=== PATIENT | female | born 1985 | race Caucasian/White ===

== ENCOUNTER → 2018-01-19 14:16 | Outpatient (REF) | payer OTHER, MEDICAID, SELFPAY | LOC: LAB 14:16 | PROVIDERS: PCP Family Medicine; Visit Provider Family Medicine | DX: Z34.02 Encounter for supervision of normal first pregnancy, second trimester (principal); Z53.9 Procedure and treatment not carried out, unspecified reason ==

== ENCOUNTER → 2018-02-13 11:37 | Outpatient (CLI) | payer OTHER, MEDICAID, SELFPAY ==
[2018-02-13 13:31] LABS: Hematocrit 32.2 % (36-46)
[2018-02-13 13:36] LABS: GTT (PREG) 1 Hour PP 50gm Dose 119 mg/dL (76-139)
== END ==
PROVIDERS: PCP Family Medicine; Visit Provider Family Medicine
DX: Z36.9 Encounter for antenatal screening, unspecified (principal); Z3A.26 26 weeks gestation of pregnancy
CPT/HCPCS: 36415; 82950; 85014; 85018

== ENCOUNTER → 2018-04-06 13:18 | Outpatient (CLI) | payer OTHER, MEDICAID, SELFPAY ==
[2018-04-06 14:05] LABS: Appearance Urine UA CLEAR; Bilirubin Urine UA NEGATIVE (NEGATIVE); Color Urine UA YELLOW; Glucose Urine UA NEGATIVE (Normal); Ketones Urine UA NEGATIVE (NEGATIVE); Leukocyte Esterase Urine UA TRACE (NEGATIVE); Nitrite Urine UA Negative (Negative); Occult Blood Urine UA NEGATIVE (Negative); Protein Urine UA NEGATIVE (Negative); Specific Gravity Urine UA <=1.005 (1.000-1.035); Urobilinogen Urine UA 0.2 E.U./dL (0.2); pH Urine UA 6.5 (4.5-8.0)
[2018-04-06 14:14] LABS: RBC Urine 0-1/HPF (0-5/HPF); Squamous Epithelial Cell Urine 1-5 /HPF; WBC Urine 1-5/HPF (0-5/HPF)
[2018-04-06 14:15] LABS: Bacteria Urine Occasional (0-1); Culture Indicated Urine Specimen Cultured
== END ==
PROVIDERS: PCP Family Medicine; Visit Provider Family Medicine
DX: O26.899 Other specified pregnancy related conditions, unspecified trimester (principal); R30.0 Dysuria
CPT/HCPCS: 81001; 87086

== ENCOUNTER → 2018-04-17 14:10 | Outpatient (CLI) | payer OTHER, MEDICAID, SELFPAY ==
[2018-04-18 11:56] LABS: Strep Grp B PCR NEG for Grp B Strep
== END ==
PROVIDERS: PCP Family Medicine; Visit Provider Family Medicine
DX: Z3A.36 36 weeks gestation of pregnancy (principal)
CPT/HCPCS: 87653

== ENCOUNTER 2018-05-23 12:05 | Observation (INO) | payer OTHER, MEDICAID, SELFPAY ==
--- NOTE | 2018-05-23 12:35 | PM.OBTRLD ---
Visit Information Visit Information Date of evaluation: 05/23/18 Primary OB Provider: Allison Saab Reason for Evaluation: Yes non-stress test Comments/Additional reasons for admission: NST due to post-dates [facility] Social History Smoking Status: Never smoker Evaluation Evaluation Baseline heart rate: 140 Variability: Moderate (11-25) monitor accelerations: Present monitor decelerations: Absent Category of Tracing: I Diagnosis, Plan/Disposition Final Diagnosis (1) Supervision of normal first in third trimester: Current Visit: No Status: Acute (2) Post-dates : Current Visit: No Status: Acute Plan/Disposition Plan: Repeat NST 05/26/18 OB Disposition: home
== END 2018-05-23 12:44 | disposition home or self-care (01) ==
PROVIDERS: Admitting Provider Family Medicine; PCP Family Medicine; Visit Provider Family Medicine
DX: O48.0 Post-term pregnancy (principal)
CPT/HCPCS: 59025; G0378; G0379

== ENCOUNTER 2018-05-24 04:18 | Inpatient (IN) | payer OTHER, MEDICAID, SELFPAY ==
[2018-05-24 05:04] LABS: Add Manual Diff / Slide Review NO; Basophils Percent Auto 0.4 % (0-2); Hemoglobin 14.1 g/dL (12.0-16.0); Lymphocytes Percent Auto 5.2 % (25-40); Mean Corpuscular HGB Conc 35.2 % (30-36); Mean Corpuscular Hemoglobin 31.3 PG (26-34); Mean Corpuscular Volume 88.9 fL (80-100); Monocytes Percent Auto 3.3 % (3-14); Neutrophils Absolute Auto 19700 /uL (3000-5900); Neutrophils Percent Auto 91.1 % (50-75); Platelet Count 277 X10^3/uL (150-400); Red Cell Distribution Width 13.7 % (11.6-14.8); White Blood Cell Count 21.6 X10^3/uL (4.5-11.0)
[2018-05-24] MEDS: OXYTOCIN 10 UNIT/ML VIAL IM (05:45)
[2018-05-24] MEDS: miSOPROStol 200 MCG TABLET 1000 MCG VAG (07:15)
[2018-05-24] MEDS: IBUPROFEN 600 MG TABLET PO ×3 (08:24→21:04)
[2018-05-24 08:57] VITALS: BP 141/80
[2018-05-24] MEDS: DERMOPLAST SPRAY 20% 60 ML 1 SPRAY TOP (12:20)
--- NOTE | 2018-05-24 12:58 | PM.OBHP.1 ---
OB HPI Date/Time Date of admission: 05/24/18 Date Patient Seen: 05/24/18 Time Patient Seen: 04:30 History of Present Condition Chief complaint: labor & delivery : 1 Para: 0 Estimated Date of Delivery: 05/15/18 Estimated Gestational Age (weeks): 41w2d Narrative: Bonnie Dotson is a 32 year old at 41w2 who presented in active labor. The pt reports having contractions starting around 6pm last night, increasing in intensity and frequency since that time. She had LOF with clear fluid. She denies significant vaginal bleeding. History of Present care: good care Dating criteria: LMP confirmed by 1st trimester US Ultrasounds: normal mid trimester US Obstetrical complications: none Medical complications: none Preadmission Labs Blood type: O (+) positive -: Antibody screen: negative, HBsAG: negative, HIV: negative and RPR/VDLR: negative -: Rubella: immune and Varicella: immune HCT: 32.2 1 hr GTT: 119 Evaluation Evaluation Baseline heart rate: 120 Variability: Moderate (11-25) monitor accelerations: Present monitor decelerations: Absent Contraction Frequency (minutes): 2 Uterine Contraction Intensity: Strong/Firm Category of Tracing: I Cervical dilation (cm): 10 Cervical effacement (%): 100 station: +2 Laboratory results: Laboratory Tests 05/24/18 05/24/18 04:52 04:52 WBC 21.6 H RBC 4.50 Hgb 14.1 Hct 40.0 MCV 88.9 MCH 31.3 MCHC 35.2 RDW 13.7 Plt Count 277 Neut % (Auto) 91.1 H Lymph % (Auto) 5.2 L [place] % (Auto) 3.3 Eos % (Auto) 0.0 L Baso % (Auto) 0.4 Neut # (Auto) 27356 H Blood Type O Positive Antibody Screen Negative PFSH Medical History Seasonal allergies (Chronic) Surgical History H/O nasal septoplasty (Resolved) Family History Father Diabetes mellitus Hypertension Social History Smoking Status: Never smoker Meds Home Medications Medication Instructions Recorded Confirmed Type 1 tab PO DAILY 02/13/18 05/24/18 History vitamin,calcium,votxxlku-tdxs-oliqw acid tablet nitrofurantoin macrocrystal 100 mg 100 mg PO BID #10 cap 04/06/18 05/24/18 Rx capsule Allergies Allergy/AdvReac Type Severity Reaction Status Date / Time cefaclor [From Ceclor] Allergy Verified 02/13/18 10:53 Exam Vital Signs (past 8 hours): - 05/24/18 08:57 Blood Pressure 141/80 H Narrative Exam Narrative: Gen: NAD, laying in bed, appears very uncomfortable with contractions CV: RRR, no murmurs REsp: clear to auscultation bilaterally Abd: gravid, appropriately tender Ext: trace edema Objective Labs Result Diagrams: 05/24/18 04:52 Labs: Laboratory Results - last 24 hr 05/24/18 05/24/18 04:52 04:52 WBC 21.6 H RBC 4.50 Hgb 14.1 Hct 40.0 MCV 88.9 MCH 31.3 MCHC 35.2 RDW 13.7 Plt Count 277 Neut % (Auto) 91.1 H Lymph % (Auto) 5.2 L [place] % (Auto) 3.3 Eos % (Auto) 0.0 L Baso % (Auto) 0.4 Neut # (Auto) 93115 H Blood Type O Positive Antibody Screen Negative Assessment and Plan (1) Post-dates : Current visit: No Status: Acute (2) 41 weeks gestation of : Current visit: Yes Status: Acute 32 yo at 41w2d who presented in active labor. Clear fluid. GBS negative, Rh positive. - Expectant management, anticipate - GBS negative, no prophylaxis indicated - Natural methods for pain control - FHT reassuring
--- NOTE | 2018-05-24 13:01 | P.HPOB_ITS ---
OB HPI Date/Time Date of admission: 05/24/18 Date Patient Seen: 05/24/18 Time Patient Seen: 04:30 History of Present Condition Chief complaint: labor & delivery : 1 Para: 0 Estimated Date of Delivery: 05/15/18 Estimated Gestational Age (weeks): 41w2d Narrative: Bonnie Dotson is a 32 year old at 41w2 who presented in active labor. The pt reports having contractions starting around 6pm last night , increasing in intensity and frequency since that time. She had LOF with clear fluid. She denies significant vaginal bleeding. History of Present care: good care Dating criteria: LMP confirmed by 1st trimester US Ultrasounds: normal mid trimester US Obstetrical complications: none Medical complications: none Preadmission Labs Blood type: O (+) positive -: Antibody screen: negative, HBsAG: negative, HIV: negative and RPR/VDLR: negative -: Rubella: immune and Varicella: immune HCT: 32.2 1 hr GTT: 119 Evaluation Evaluation Baseline heart rate: 120 Variability: Moderate (11-25) monitor accelerations: Present monitor decelerations: Absent Contraction Frequency (minutes): 2 Uterine Contraction Intensity: Strong/Firm Category of Tracing: I Cervical dilation (cm): 10 Cervical effacement (%): 100 station: +2 Laboratory results: Laboratory Tests 05/24/18 05/24/18 04:52 04:52 WBC 21.6 H RBC 4.50 Hgb 14.1 Hct 40.0 MCV 88.9 MCH 31.3 MCHC 35.2 RDW 13.7 Plt Count 277 Neut % (Auto) 91.1 H Lymph % (Auto) 5.2 L [place] % (Auto) 3.3 Eos % (Auto) 0.0 L Baso % (Auto) 0.4 Neut # (Auto) 01356 H Blood Type O Positive Antibody Screen Negative PFSH Medical History Seasonal allergies (Chronic) Surgical History H/O nasal septoplasty (Resolved) Family History Father Diabetes mellitus Hypertension Social History Smoking Status: Never smoker Meds Home Medications Medication Instructions Recorded Confirmed Type 1 tab PO DAILY 02/13/18 05/24/18 History vitamin,calcium,iysaphjb-sbrf-unvbx acid tablet nitrofurantoin macrocrystal 100 mg 100 mg PO BID #10 cap 04/06/18 05/24/18 Rx capsule Allergies Allergy/AdvReac Type Severity Reaction Status Date / Time cefaclor [From Ceclor] Allergy Verified 02/13/18 10:53 Exam Vital Signs (past 8 hours): - 05/24/18 08:57 Blood Pressure 141/80 H Narrative Exam Narrative: Gen: NAD, laying in bed, appears very uncomfortable with contractions CV: RRR, no murmurs REsp: clear to auscultation bilaterally Abd: gravid, appropriately tender Ext: trace edema Objective Labs Result Diagrams: 05/24/18 04:52 Labs: Laboratory Results - last 24 hr 05/24/18 05/24/18 04:52 04:52 WBC 21.6 H RBC 4.50 Hgb 14.1 Hct 40.0 MCV 88.9 MCH 31.3 MCHC 35.2 RDW 13.7 Plt Count 277 Neut % (Auto) 91.1 H Lymph % (Auto) 5.2 L [place] % (Auto) 3.3 Eos % (Auto) 0.0 L Baso % (Auto) 0.4 Neut # (Auto) 22544 H Blood Type O Positive Antibody Screen Negative Assessment and Plan (1) Post-dates : Current visit: No Status: Acute (2) 41 weeks gestation of : Current visit: Yes Status: Acute 32 yo at 41w2d who presented in active labor. Clear fluid. GBS negative, Rh positive. - Expectant management, anticipate - GBS negative, no prophylaxis indicated - Natural methods for pain control - FHT reassuring
--- NOTE | 2018-05-24 13:27 | PM.OBPRVD ---
Delivery date: 05/24/18 Intrapartal events: None Induction method: none Delivery monitor: external FHT Route of delivery: Episiotomy description: None Laceration description: Labial (left) Delivery repair: chromic Estimated blood loss (mL): 250 Anesthesia type: None Complications: None Narrative: PROCEDURE: at 41w2d presented in active labor and was admitted to Labor and Delivery. The patient progressed through the 1st stage over 10 hours including laboring time at home. She was completely dilated at presentation to the hospital. Pain was controlled with natural methods. The patient progressed through the 2nd stage over 1 hour and delivered a viable male with APGARs 8/9 at 5:41 via . The perineum and vagina were inspected with left labial laceration repaired with 3-O Chromic. The perineum was intact. PREPROCEDURE DIAGNOSIS: Intrauterine at 41w2d GBS negative RH positive POSTPROCEDURE DIAGNOSIS: Intrauterine at 41w2d, delivered Same as preprocedure PROCEDURE: Spontaneous vaginal delivery BABY A WEIGHT: [id number] BABY A NUCHAL CORD: None PLACENTA DELIVERY TIME: 5:57 PLACENTA APPEARANCE: Intact Baby 1: gender: Male Presentation: vertex position: Right Occiput Anterior cord vessel description: 3 Vessels score (1 min): 8 score (5 min): 9 Plan for aftercare: Normal care support
[2018-05-24] MEDS: OXYCODONE/ACETAMINOPHEN 5/325 TABLET 1 TAB PO (23:03)
[2018-05-25] MEDS: OXYCODONE/ACETAMINOPHEN 5/325 TABLET 1 TAB PO ×4 (02:55→13:40)
[2018-05-25] MEDS: IBUPROFEN 600 MG TABLET PO (08:46)
[2018-05-25] MEDS: PRENATAL VIT,CALC/IRON/FOLIC 1 TABLET 1 TAB PO (08:47)
[2018-05-25] MEDS: DOCUSATE 250 MG CAPSULE PO (08:47)
[2018-05-25 09:22] VITALS: BP 106/68; PULSE 66; RESP 14; TEMP 36.3
--- NOTE | 2018-05-25 09:27 | PM.OBDS.1 ---
Discharge Providers Date of admission: 05/24/18 04:18 Primary care physician: Allison Saab MD Consults: 05/24/18 07:15 Consult to Wood Fence Erector Routine Comment: Discharge provider: Allison Saab MD Summary Date Patient Seen: 05/25/18 Time Patient Seen: 08:10 Hospital Course: The pt presented in active labor with complete dilation. She pushed effectively and delivered a viable baby boy at 5:41 on 05/24/18. A left labial laceration was then repaired. She did not use any pain medication. Approximately 1 hour , the pt did have uterine atony with hemorrhage with loss of approximately 500cc of blood that was controlled with rectal cyctotec. The pt remained asymptomatic. There were no additional complications. At the time of discharge she was voiding and ambulating without difficulty. She had stooled once. She was with good latch. Her lochia was decreasing appropriately. She will f/u for a 6 week appointment. She is undecided regarding control, but has used the patch in the past. Peripartum Data Delivery Method: Natural Vaginal Laceration description: Labial Episiotomy description: None Procedures: Spontaneous vaginal delivery complications: none [place] 1: Gender: Male Disposition of : home Discharge Diagnosis (1) (spontaneous vaginal delivery): Status: Acute Status at Discharge Functional status at discharge: independent ambulation Overall status at discharge: patient is progressing back to baseline Time Spent with Patient Total time spent providing and/or coordinating discharge services: Greater than 30 minutes Specific discharge activities: No intercourse for 6 weeks Objective Labs Result Diagrams: 05/25/18 09:00 Discharge Plan Discharge Plan Patient Disposition: Home Discharge Med Rec/Prescriptions Prescriptions: New acetaminophen 325 mg Tablet 650 mg PO Q6HR PRN (Reason: Pain, Mild (1-3)) Qty: 30 RF: 0 benzocaine-menthol [Dermoplast (with menthol)] 20-0.5 % Aerosol 1 spray Topical Q1HR PRN (Reason: perineal pain) Qty: 15 RF: 0 oxycodone-acetaminophen 5-325 mg Tablet 1 tab PO Q4HR Qty: 5 RF: 0 ibuprofen 600 mg Tablet 600 mg PO Q6HR PRN (Reason: Pain, Mild (1-3)) Qty: 30 RF: 0 docusate sodium 250 mg Capsule 250 mg PO DAILY Qty: 60 RF: 0 lanolin [Yyc-K-Ybvpkb] Cream 1 applic Topical PRN PRN (Reason: Tenderness) Qty: 15 RF: 0 Continue prenat.vits,estrellita,pzf-uuij-trrun tablet 1 tab PO DAILY RF: 0 Discontinued nitrofurantoin macrocrystal 100 mg capsule 100 mg PO BID Qty: 10 RF: 0 Follow up/Referrals: Allison Saab MD [Primary Care Provider] - 6 Weeks (July 05Tue at 11:45am with Dr Saab) Provider Discharge Instructions Diet: Regular Activity: No intercourse for 6 weeks Skin/Wound/Dressing Care Report to your healthcare provider any signs of infection, such as:: chills, fever, increased pain and unusual drainage Visit Report/Discharge Packet Instructions: DI for Labor and Delivery, Vaginal Stand Alone Forms: Discharge: Care Visit Report Forms: Stroke Signs & Symptoms Discharge Data Primary Care Provider: Allison Saab Attending Provider: Allison Saab Admit Date/Time: 05/24/18 04:18
--- NOTE | 2018-05-25 09:32 | P.DS_ITS ---
Discharge Providers Date of admission: 05/24/18 04:18 Primary care physician: Allison Saab MD Consults: 05/24/18 07:15 Consult to Paste Up Worker Routine Comment: Discharge provider: Allison Saab MD Summary Date Patient Seen: 05/25/18 Time Patient Seen: 08:10 Hospital Course: The pt presented in active labor with complete dilation. She pushed effectively and delivered a viable baby boy at 5:41 on 05/24/18. A left labial laceration was then repaired. She did not use any pain medication. Approximately 1 hour , the pt did have uterine atony with hemorrhage with loss of approximately 500cc of blood that was controlled with rectal cyctotec. The pt remained asymptomatic. There were no additional complications. At the time of discharge she was voiding and ambulating without difficulty. She had stooled once. She was with good latch. Her lochia was decreasing appropriately. She will f/u for a 6 week appointment. She is undecided regarding control, but has used the patch in the past. Peripartum Data Delivery Method: Natural Vaginal Laceration description: Labial Episiotomy description: None Procedures: Spontaneous vaginal delivery complications: none [place] 1: Gender: Male Disposition of : home Discharge Diagnosis (1) (spontaneous vaginal delivery): Status: Acute Status at Discharge Functional status at discharge: independent ambulation Overall status at discharge: patient is progressing back to baseline Time Spent with Patient Total time spent providing and/or coordinating discharge services: Greater than 30 minutes Specific discharge activities: No intercourse for 6 weeks Objective Labs Result Diagrams: 05/25/18 09:00 Discharge Plan Discharge Plan Patient Disposition: Home Discharge Med Rec/Prescriptions Prescriptions: New acetaminophen 325 mg Tablet 650 mg PO Q6HR PRN (Reason: Pain, Mild (1-3)) Qty: 30 RF: 0 benzocaine-menthol [Dermoplast (with menthol)] 20-0.5 % Aerosol 1 spray Topical Q1HR PRN (Reason: perineal pain) Qty: 15 RF: 0 oxycodone-acetaminophen 5-325 mg Tablet 1 tab PO Q4HR Qty: 5 RF: 0 ibuprofen 600 mg Tablet 600 mg PO Q6HR PRN (Reason: Pain, Mild (1-3)) Qty: 30 RF: 0 docusate sodium 250 mg Capsule 250 mg PO DAILY Qty: 60 RF: 0 lanolin [Prr-K-Hqeqlc] Cream 1 applic Topical PRN PRN (Reason: Tenderness) Qty: 15 RF: 0 Continue prenat.vits,estrellita,fuk-nedy-ybulv tablet 1 tab PO DAILY RF: 0 Discontinued nitrofurantoin macrocrystal 100 mg capsule 100 mg PO BID Qty: 10 RF: 0 Follow up/Referrals: Allison Saab MD [Primary Care Provider] - 6 Weeks (July 05Tue at 11: 45am with Dr Saab) Provider Discharge Instructions Diet: Regular Activity: No intercourse for 6 weeks Skin/Wound/Dressing Care Report to your healthcare provider any signs of infection, such as:: chills, fever, increased pain and unusual drainage Visit Report/Discharge Packet Instructions: DI for Labor and Delivery, Vaginal Stand Alone Forms: Discharge: Care Visit Report Forms: Stroke Signs & Symptoms Discharge Data Primary Care Provider: Allison Saab Attending Provider: Allison Saab Admit Date/Time: 05/24/18 04:18
[2018-05-25 09:35] LABS: Add Manual Diff / Slide Review NO; Basophils Percent Auto 0.4 % (0-2); Eosinophils Percent Auto 3.8 % (2-4); Hematocrit 31.6 % (36-46); Hemoglobin 11.1 g/dL (12.0-16.0); Lymphocytes Percent Auto 25.6 % (25-40); Mean Corpuscular HGB Conc 34.9 % (30-36); Mean Corpuscular Hemoglobin 31.6 PG (26-34); Mean Corpuscular Volume 90.3 fL (80-100); Monocytes Percent Auto 7.8 % (3-14); Neutrophils Absolute Auto 6800 /uL (3000-5900); Neutrophils Percent Auto 62.4 % (50-75); Platelet Count 265 X10^3/uL (150-400); Red Cell Distribution Width 14.1 % (11.6-14.8); White Blood Cell Count 10.8 X10^3/uL (4.5-11.0)
== END 2018-05-25 13:50 | disposition home or self-care (01) | DRG 542 ==
PROVIDERS: Admitting Provider Family Medicine; PCP Family Medicine; Visit Provider Family Medicine
DX: O48.0 Post-term pregnancy (principal); Z3A.41 41 weeks gestation of pregnancy; O70.0 First degree perineal laceration during delivery; O72.1 Other immediate postpartum hemorrhage; Z37.0 Single live birth
CPT/HCPCS: 36415; 59025; 59050; 59409; 85025; 86850; 86900; 86901; G0378; G0379; J2590; S0191

== ENCOUNTER → 2021-04-15 13:30 | Outpatient (CLI) | payer OTHER, MEDICAID, SELFPAY ==
--- NOTE | 2021-04-15 13:31 | DI.US.S_ITS ---
LIMITED ULTRASOUND OF LEFT BREAST AND AXILLA: 04/15/2021 CLINICAL: Palpable left breast lump. Comparison is made to exams [facility]2018 [facility] flow ultrasound of the left breast axilla was performed. Up scale images of the real-time examination were reviewed. There is a mass in the left breast at 5 o'clock middle depth. This mass is of mixed echogenicity with posterior acoustic shadowing and enhancement. This correlates as palpated and with mammography findings. Color flow imaging demonstrates that there is no increase in vascularity. This mass is difficult to measure or characterize on ultrasound due to its large size. No significant abnormalities were seen sonographically in the left axilla. IMPRESSION: SUSPICIOUS OF MALIGNANCY The mass in the left breast has a differential diagnosis of a solid mass, a hamartoma, or a phyllodes tumor and is at a low suspicion for malignancy. An ultrasound guided biopsy is recommended. The findings and recommendations were discussed with the patient over the telephone at the time of the exam. This exam was interpreted at Station ID: [id number]. Electronically Signed By: Musa carroll/jabari:04/15/2021 15:47:49 letter sent: Biopsy Required Ultrasound BI-RADS: 4a Low suspicion for malignancy
--- NOTE | 2021-04-15 13:31 | DI.MG.S_ITS ---
BILATERAL DIGITAL DIAGNOSTIC MAMMOGRAM 3D/2D: 04/15/2021 CLINICAL: Baseline. Palpable left breast lump and pain. Comparison is made to exam dated: 01/02/2018 [facility]. The tissue of both breasts is extremely dense, which lowers the sensitivity of mammography. There is a 15.4 cm x 9.5 cm x 10.7 cm oval mass with a circumscribed margin in the left breast at 5 o'clock middle depth. This correlates as palpated. The mass is predominantly high density, but contains foci of internal fat. No other significant masses, calcifications, or other findings are seen in either breast. IMPRESSION: INCOMPLETE: NEEDS ADDITIONAL IMAGING EVALUATION The 15.4 cm x 9.5 cm x 10.7 cm oval mass in the left breast has a differential diagnosis of a solid mass or a hamartoma and is indeterminate. An ultrasound is recommended. This exam was interpreted at Station ID: [id number]. NOTE: For mammograms, a report in lay terms will be sent to the patient. Approximately 15% of breast malignancies will not be visualized mammographically. In the management of a palpable breast mass, a negative mammogram must not discourage biopsy of a clinically suspicious lesion. Electronically Signed By: Musa carroll/jabari:04/15/2021 15:44:45 ACR BI-RADS Category 0: Incomplete [id number]
== END ==
PROVIDERS: PCP Family Medicine; Referring Provider Family Medicine; Visit Provider Family Medicine
DX: N63.23 Unspecified lump in the left breast, lower outer quadrant (principal); N64.4 Mastodynia; R92.8 Other abnormal and inconclusive findings on diagnostic imaging of breast
CPT/HCPCS: 76642; 77066; G0279

== ENCOUNTER → 2021-05-07 08:17 | Outpatient (CLI) | payer OTHER, MEDICAID, SELFPAY ==
--- NOTE | 2021-05-07 | DI.MG.S_ITS ---
UNILATERAL LEFT DIGITAL DIAGNOSTIC MAMMOGRAM 3D/2D POST-PROCEDURE IMAGING FOR MARKER PLACEMENT: 05/07/2021 CLINICAL: Left post clip. Comparison is made to exams dated: 04/15/2021 ultrasound, 04/15/2021 mammogram, and 01/02/2018 [facility]. The tissue of left breast is extremely dense, which lowers the sensitivity of mammography. There is a marker clip in the appropriate position in the left breast at 4 o'clock middle depth. This marker clip placement is at the biopsy site. IMPRESSION: POST PROCEDURE MAMMOGRAM FOR MARKER PLACEMENT There was a successful marker clip placement in the left breast middle depth. This exam was interpreted at Station ID: [id number]. NOTE: For mammograms, a report in lay terms will be sent to the patient. Approximately 15% of breast malignancies will not be visualized mammographically. In the management of a palpable breast mass, a negative mammogram must not discourage biopsy of a clinically suspicious lesion. Electronically Signed By: Marilee Knight M.D. [facility]/:05/07/2021 10:44:41 ACR BI-RADS Category Post-procedure mammogram for marker placement
--- NOTE | 2021-05-07 | PATH_ITS ---
[facility] Accession Number: [id number] . 01 Material submitted: . breast - LEFT BREAST MASS 5:00 4 CMFN . 01 Diagnosis: Left Breast, Mass at 5 o'clock, 4 cm from Nipple, Image-Guided Core Biopsy: Fibrocystic change. -Focal lactational change identified. -Negative for significant epithelial hyperplasia or atypia. -Negative for neoplasia and malignancy. MRV 05/08/2021 1417 Local . 01 Electronically signed: . Yoli Casillas MD, Pathologist NPI- [id number] . 01 Gross description: . Received one formalin-filled container, labeled with the patient's name and labeled LT breast 5 o'clock 4 cm FN. The sample is received with a plastic filter in container, sample loose in container and consists of multiple fragments of light yellow-hardin to hardin-calvert tissue which range in size from 0.2 x 0.2 x 0.2 cm to 0.9 x 0.3 x 0.3 cm. All fragments are totally submitted in one cassette. Possible collection date and time: 05/07/21 at 0930. Total fixation time: Approximately 17 hours. ([id number]) /FRJuan Jose 05/08/20213 Local . 01 Pathologist provided ICD-10: N63.20 . 01 CPT . 697308 Performed at: 01 [facility] [address] [place] [address] [address], [place], [place] [id number] MD Mikie Powell MD Phone: [phone]
--- NOTE | 2021-05-07 08:19 | DI.US.S_ITS ---
PROCEDURE: US BX BREAST PERC W VAC DEVICE COMPARISON: None. INDICATIONS: breast lump FINDINGS: IMPRESSION: Dictated by: Marilee Knight MD, PhD on 05/07/2021 at 10:34 Approved by: Marilee Knight MD, PhD on 05/07/2021 at 10:47
--- NOTE | 2021-05-07 08:49 | DI.US.S_ITS ---
Procedure: US bx breast perc w vac device ULTRASOUND GUIDED BIOPSY LEFT BREAST USING VACUUM DEVICE WITH MARKING DEVICE INSERTED AND POST DIGITAL MAMMOGRAPHIC IMAGIN05/07/2021 CLINICAL: Left breast mass. PATIENT CONSENT: Risks (minor bleeding, infection, vasovagal reaction and repeat procedure), benefits and alternatives were explained to the patient and written informed consent was obtained. Correlation is made to exams dated: 05/07/2021 mammogram, 04/15/2021 ultrasound, 04/15/2021 mammogram, and 01/02/2018 [facility]. An ultrasound guided biopsy using real-time ultrasound was performed for the oval solid mass located in the left breast at 4 o'clock middle depth. The skin was prepped in the usual manner. A 13 gauge biopsy needle was placed adjacent to the abnormality under ultrasound guidance. Once the needle was documented to be in the correct location, four specimens were obtained using the Mammotome biopsy system. A Vision biopsy clip was inserted into the biopsy cavity. Post procedure digital mammographic imaging was obtained. The specimens were sent to the laboratory for pathological analysis. IMPRESSION: ULTRASOUND GUIDED BIOPSY BENIGN Ultrasound guided biopsy of the solid mass in the left breast at 4 o'clock middle depth was successful. Pathology indicates benign fibrocystic changes (FC). Pathology results are potentially discordant with mammography and ultrasound findings which are suggestive of a breast neoplasm, a hamartoma, or phyllodes tumor. Given the size and heterogeneous appearance of the mass, sampling error may be a factor. Recommend surgical consultation. This exam was interpreted at Station ID: [id number]. Marilee monae,jada/:05/12/2021 20:29:56
== END ==
PROVIDERS: PCP Family Medicine; Referring Provider Family Medicine; Visit Provider Family Medicine
DX: N63.23 Unspecified lump in the left breast, lower outer quadrant (principal); N60.12 Diffuse cystic mastopathy of left breast
CPT/HCPCS: 19083; 77065

== ENCOUNTER → 2021-07-28 18:28 | Outpatient (CLI) | payer OTHER, MEDICAID, SELFPAY | PROVIDERS: PCP Family Medicine; Referring Provider Physician Assistant; Visit Provider Physician Assistant | DX: N34.3 Urethral syndrome, unspecified (principal) | CPT/HCPCS: 81002; 87077; 87086; 87186 ==

== ENCOUNTER → 2021-08-10 17:18 | Outpatient (CLI) | payer OTHER, MEDICAID, SELFPAY ==
[2021-08-10 18:55] LABS: Appearance Urine UA CLEAR; Bilirubin Urine UA NEGATIVE (NEGATIVE); Color Urine UA YELLOW; Glucose Urine UA NEGATIVE (Negative); Ketones Urine UA TRACE (NEGATIVE); Leukocyte Esterase Urine UA TRACE (NEGATIVE); Nitrite Urine UA NEGATIVE (Negative); Occult Blood Urine UA 3+ (Negative); Protein Urine UA NEGATIVE (Negative); Specific Gravity Urine UA 1.025 (1.000-1.035); Urobilinogen Urine UA 0.2 E.U./dL (0.2)
[2021-08-10 19:07] LABS: Bacteria Urine Moderate (10-30); Culture Indicated Urine Specimen Cultured; RBC Urine 5-10/HPF (0-5/HPF); WBC Urine 5-10/HPF (0-5/HPF)
== END ==
PROVIDERS: PCP Family Medicine; Referring Provider Family Medicine; Visit Provider Family Medicine
DX: N39.0 Urinary tract infection, site not specified (principal)
CPT/HCPCS: 81001; 87086

== ENCOUNTER → 2022-02-01 09:43 | Outpatient (CLI) | payer OTHER, MEDICAID, SELFPAY ==
[2022-02-01 11:38] LABS: COVID19 -Nasal RAPID Negative (Negative)
== END ==
PROVIDERS: PCP Family Medicine; Visit Provider Surgery
DX: Z20.822 Contact with and (suspected) exposure to COVID-19 (principal); Z01.812 Encounter for preprocedural laboratory examination
CPT/HCPCS: 87635; C9803

== ENCOUNTER → 2022-02-04 09:55 | Outpatient (CLI) | payer OTHER, MEDICAID, SELFPAY ==
[2022-02-04 11:30] LABS: COVID19 -Nasal RAPID Negative (Negative)
== END ==
PROVIDERS: PCP Family Medicine; Visit Provider Surgery
DX: Z01.812 Encounter for preprocedural laboratory examination (principal); Z20.822 Contact with and (suspected) exposure to COVID-19
CPT/HCPCS: 87635; C9803

== ENCOUNTER 2022-02-05 12:46 | Day surgery (SDC) | payer OTHER, MEDICAID, SELFPAY ==
[2022-01-28 07:39] VITALS: BMI 24.1
[2022-02-05] VITALS (7 sets, daily range): BP systolic 123–133; BP diastolic 72–90; PULSE 66–101; RESP 10–16; TEMP 36.5–37.4; O2SAT 95–99; BMI 27.3
--- NOTE | 2022-02-05 | PATH_ITS ---
[facility] Accession Number: [id number] . 01 Material submitted: . breast - LEFT BREAST MASS . 01 Diagnosis: Left Breast Mass, Excision (Weight 531 grams): Benign breast parenchyma with features of pseudoangiomatous stromal hyperplasia (PASH), sclerosing adenosis, duct ectasia, and lactational / secretory changes. Vision-shaped biopsy clip 1 cm from the nearest peripheral margin. Microcalcifications are present and are associated with benign ductal epithelium. Negative for in-situ or invasive carcinoma. V 02/09/2022 1330 Local . 01 Comment: As part of routine design quality engineer, this case was also reviewed by Dr. Mina, who agrees with the interpretation. . 01 Electronically signed: . Sherley Tomlin MD, Pathologist NPI- [id number] . 01 Gross description: . Received in formalin, labeled with the patient's name and designated 1. Left breast mass, is a 531 g, 14.0 x 11.0 x 5.5 cm, unoriented, encapsulated, nodular mass with focal attached red-brown skeletal muscle. The outer surface is inked black. Sectioning reveals a mottled, pink-calvert to pale yellow, rubbery, focally edematous cut surface with a few scattered chalky areas involving less than 10% of the cut surface and an imbedded Vision-shaped biopsy clip that is 1 cm from the nearest peripheral margin. No residual uninvolved parenchyma is identified. There is one 0.8 cm cyst at the periphery filled with white, chalky, friable material. No additional lesions are identified. Mud Logger sections are submitted in cassettes A1-A7 (biopsy site in cassette A7). The specimen was placed into formalin on 02/05/2022 at 3:55 p.m., for a total fixation time between 60 and 72 hours. (JUAN [id number]) /FRR 02/06/20222000 [facility] . 01 Pathologist provided ICD-10: N63.20 . 01 CPT . 447023 Specimen Comment: A courtesy copy of this report has been sent to [facility] Performed at: 01 [facility] [address] [place] [address], [place], [place] [id number] MD Mikie Powell MD Phone: [phone]
--- NOTE | 2022-02-05 14:40 | PM.HP.1 ---
History of Present Illness History of Present Illness Date Patient Seen: 02/05/22 Time Patient Seen: 14:40 Chief complaint: [facility] – [place] Narrative: Bonnie is here today for her left breast partial mastectomy. She feels that the breast lesion is about the same as it was when I saw her in November. See the office note from November and from last year for details. Patient History Medical History Seasonal allergies (spontaneous vaginal delivery) Surgical History H/O nasal septoplasty History of tympanoplasty Family & Social History Family History Father Diabetes mellitus Hypertension Social History: household members significant other,children Tobacco & Substance use: Smoking Status Never smoker alcohol intake current alcohol intake frequency 0-2 drinks per day Substance Use Type marijuana Meds Home Medications and Allergies Allergies Allergy/AdvReac Type Severity Reaction Status Date / Time cefaclor [From Ceclor] Allergy Verified 02/05/22 12:57 Exam Vital Signs (past 8 hours): - 02/05/22 13:10 Temperature 97.7 F Pulse Rate 80 Respiratory Rate 16 Blood Pressure 123/90 Pulse Oximetry 99 Oxygen Delivery Method Room Air Oxygen Delivery Method Room Air Narrative Exam Narrative: Large pendulous left breast with a 10-15 cm lesion. Assessment & Plan Assessment and plan (1) Mass of left breast: Qualifiers: Breast mass location: unspecified quadrant Qualified Code(s): N63.20 - Unspecified lump in the left breast, unspecified quadrant Status: Acute Plan I described our plan for a partial mastectomy to remove this mass. Since the mass is such a large portion of her breast it may be necessary to perform a total mastectomy. She understands and wishes to proceed. Time Spent With Patient Critical Care time: I spent a total of [] minutes of critical care time on this patient's care today; this time is exclusive of procedural time.
[2022-02-05] MEDS: CLINDAMYCIN 900 MG/50 ML PIGGYBACK 50 MG IV (14:55)
--- NOTE | 2022-02-05 15:09 | SUR.OPER ---
Supine on padded OR bed, head on pillow, arms secured on padded arm boards at <90 degrees abduction, legs uncrossed, safety belt at thigh, tape over blanket over lower legs.
[2022-02-05] MEDS: LACTATED RINGERS 1,000 ML 42 ML IV (15:19)
[2022-02-05] MEDS: ACETAMINOPHEN IV 1,000 MG/100 ML VIAL 400 MG IV (16:04)
[2022-02-05] MEDS: LIDOCAINE 1% W/EPI 20 ML INJ (16:10)
[2022-02-05] MEDS: BUPIVACAINE 0.5% (PF) VIAL 30 ML INJ (16:10)
--- NOTE | 2022-02-05 16:41 | PM.OP.1 ---
Operative Date/Time/Diagnoses Date of procedure: 02/05/22 Time of procedure: 16:42 Pre-op diagnosis: Left breast mass Post-op diagnosis: same Procedure & Clinicians Procedure: Left breast partial mastectomy Same procedure as scheduled: Yes Surgeon: Jax Arellano Anesthesia Type: General Operative Notes Procedure in detail: The patient was given preoperative antibiotic. The patient was brought to the operating room, placed on the table in the supine position, general endotracheal anesthesia was induced. Arms were abducted on arm boards. The left breast and axilla were prepped and draped in the usual fashion. A time-out was performed. A 12 cm incision was created inferior to the left areola. Dissection down through some subcutaneous adipose tissue brought us to the mass itself which was very well defined. There was a very clear areolar plane around the entire mass. There were a few blood vessels coming in from the posterior medial and posterior lateral direction which were divided between 3-0 Vicryl ties or cauterized. The mass itself was 13 x 15 x 12 cm and was roughly ovoid. We then irrigated the wound cavity with sterile saline. A few bleeders were cauterized. Once the wound cavity was hemostatic we injected some Marcaine into the dermis and closed the incision in layers using multiple interrupted 3-0 Vicryl dermal sutures followed by a running 4-0 Monocryl subcuticular closure. Steri-Strips were applied followed by dry gauze and a breast binder. EBL: 15 mL Post-operative Condition: stable Disposition: PACU
== END 2022-02-05 17:12 | disposition home or self-care (01) ==
PROVIDERS: PCP Family Medicine; Referring Provider Surgery; Visit Provider Surgery
PROC: 0HTU0ZZ Resection of Left Breast, Open Approach (ICD-10-PCS; CPT 19301; principal; 2022-02-05 14:00)
DX: N63.20 Unspecified lump in the left breast, unspecified quadrant (principal)
CPT/HCPCS: 19301; 81025; J0131; J1100; J2405; J2704; J3010

== ENCOUNTER 2023-11-08 18:59 | Emergency (ER) | payer OTHER, MEDICAID, SELFPAY | END 2023-11-08 19:22 | disposition home or self-care (01) | LOC: ED 19:18 | PROVIDERS: PCP Family Medicine | DX: J32.9 Chronic sinusitis, unspecified (principal) ==

== ENCOUNTER → 2023-11-09 16:05 | Outpatient (CLI) | payer OTHER, MEDICAID, SELFPAY ==
[2023-11-09 16:49] LABS: Influenza A - CEPHEID Flu A NEGATIVE (NEGATIVE); Influenza B - CEPHEID Flu B NEGATIVE (NEGATIVE); Respiratory Syncytial Virus Negative (Negative)
[2023-11-09 16:50] LABS: COVID-19 CEPHEID 4-PLEX PCR Negative (Negative)
== END ==
PROVIDERS: PCP Family Medicine; Visit Provider Family Medicine
DX: R06.02 Shortness of breath (principal)
CPT/HCPCS: 87635; 87400 ×2; 87420; 0241U